=== PATIENT | female | born 2000 | race Caucasian/White ===

== ENCOUNTER 2024-09-24 22:58 | Observation (INO) | payer SELFPAY ==
--- NOTE | ~2024-09-24 | US_ITS ---
EXAMINATION: US OB <= 14 weeks fetus DATE: 09/24/2024 23:21 STANDARD MACHINE STITCHER INDICATION: Abdominal pain, and bleeding COMPARISON: 06/04/2024 TECHNIQUE: Real-time transabdominal obstetric ultrasound. FINDINGS: 1 Estimated date of delivery by last menstrual period is 04/13/2025 The uterus measures 11.1 x 4.9 x 5.5 cm. The endometrium is complex and echogenic with active vascular flow. No gestational sac is able to be visualized. The cervix appears dilated with echogenic tissue, likely acute blood products. The right ovary measures 3.2 x 2.3 x 3.8 cm. The left ovary measures 3.1 x 2.9 x 2.4 cm. IMPRESSION: Complex echogenic endometrium active vascular flow extending into the cervix, likely representing acu te blood products. These findings discussed with HALIMA Reis at 11:26 PM on 09/24/2024 Reviewed, dictated and finalized at location A. DARD MACHINE STITCHER IMPRESSION: Complex echogenic endometrium active vascular flow extending into the cervix, l ikely representing acute blood products. These findings discussed with HALIMA Reis at 11:26 PM on 09/24/2024
[2024-09-24 22:54] VITALS: BP 87/49; PULSE 83; RESP 18; TEMP 36.4; O2SAT 99
[2024-09-24 23:06] VITALS: BP 87/49; PULSE 83; RESP 17; O2SAT 100
--- NOTE | 2024-09-24 23:12 | ED.ABDPAIN ---
HPI - Abdominal Pain General Chief Complaint: Abdominal Pain Stated Complaint: abd pain Time Seen by Provider: 09/24/24 23:01 History of Present Illness HPI narrative: Patient is a 24-year-old female who presents emergency department this evening from [facility] with complaint of heavy vaginal bleeding and abdominal cramping which started this evening. Patient states that this is her 1st , and sees Dr. Espino. Admits that she has already had an ultrasound confirming an intrauterine . Patient states that around 1:00 p.m. she started to have some minor bleeding and some heavy cramping and throughout the day the bleeding increased. Upon arrival to our emergency department, patient is noted to be hypotensive with a blood pressure of 87/49, diaphoretic, pale and has completely soaked through the EMS stretcher. EMS has administered a L of IV fluid bolus with normal saline. Related Data Allergies Allergy/AdvReac Type Severity Reaction Status Date / Time amoxicillin (From Augmentin) Allergy Unknown Unknown Verified 09/24/24 23:48 cefdinir (From Omnicef) Allergy Unknown Unknown Verified 09/24/24 23:48 clavulanic acid (From Allergy Unknown Unknown Verified 09/24/24 23:48 Augmentin) Review of Systems Review of Systems: All systems are reviewed and are negative unless stated otherwise in the HPI. [facility] Past Medical History Medical History Overweight (BMI 25.0-29.9) Incomplete miscarriage with blood clot Exam Narrative: General: Alert, awake, afebrile, pale and diaphoretic. HEENT: PERRL, no rhinorrhea, no post nasal drip, oropharynx clear. Neck: Trachea midline, no JVD, no lymphadenopathy. Cardiovascular: Regular rate and rhythm, no murmurs, rubs or gallops, no peripheral edema. Respiratory: Clear to auscultation bilaterally, no tachypnea, no wheezing, no rhonchi, no rubs, no respiratory distress. Abdomen: Soft, nontender, nondistended, no rebound, no guarding, no peritoneal signs. Pelvic: Exam performed with the presence of female nurse aesthetics instructor revealed perfuse vaginal bleeding. Musculoskeletal: No joint swelling or deformity, normal muscle tone. Skin: No rashes or petechia, no signs of infection. Psychiatric: Alert and oriented, normal behavior and judgment for situation. Neurological: Alert and oriented to person, place, and time. Follows all commands. No focal deficits, speech is clear and fluent. Const: General: ill appearing Course Vital Signs Vital signs: Vital Signs Temperature 97.5 F L 09/24/24 22:54 Pulse Rate 83 09/24/24 22:54 Respiratory Rate 18 09/24/24 22:54 Blood Pressure 87/49 L 09/24/24 22:54 Pulse Oximetry 99 09/24/24 22:54 Oxygen Delivery Room Air 09/24/24 22:54 Temperature 97.5 F L 09/24/24 22:54 Pulse Rate 83 09/24/24 23:06 Respiratory Rate 17 09/24/24 23:06 Blood Pressure 87/49 L 09/24/24 23:06 Pulse Oximetry 100 09/24/24 23:06 Oxygen Delivery Room Air 09/24/24 22:54 MDM - Abdominal Pain MDM Narrative Medical decision making narrative: The patient was evaluated by myself in the emergency department. History is obtained from patient who is an independent historian and physical exam was performed. External medical records were reviewed at this time. IV was established and pertinent tests were ordered. Patient was continued on the 1 L IV fluid bolus initiated by EMS, emergent release of 1 unit of packed RBCs O negative blood was initiated at this time. The on-call OB physician for Dr. Espino, Dr. Van was contacted at [phone] for emergency N/C. Laboratory results obtained revealing a leukocytosis of 16.8, hemoglobin of 9.8 no previous available for comparison. Type and screen, Rh, PT/INR/PTT currently pending. Imaging studies obtained included pelvic ultrasound OB less than 14 weeks, received a call from radiologist shortly after at [phone] informing us that ultrasound revealed active uterine hemorrhage. Differential diagnosis considerations include miscarriage, hemorrhagic shock. Comorbidities impacting this visit include none. I have evaluated and discussed social determinants of health with the patient that could potentially impact subsequent diagnosis and treatment plans. Patient was taken to OR emergently for a D&C. Critical care time of 37 minutes, exclusive of separately performed procedures, necessary for treating or preventing eminent or life-threatening deterioration of patient's condition of hemorrhagic shock, focused on patient care provided personally by me and time spent during initial evaluation, physical examination, ordering and performing treatments and interventions, ordering and reviewing laboratory studies, ordering and reviewing radiographic studies, re-evaluation of the patient's condition, evaluation of the patient's response to treatment, and discussion of patient case with multiple consultants. Lab Data 09/24/24 23:39 09/24/24 23:39 Labs: Lab Results 09/24/24 Range/Units 23:39 WBC 16.8 H (4.5-10.0) K/mm3 RBC 3.33 L (4.2-5.4) M/mm3 Hgb 9.8 L (12.0-15.0) g/dL Hct 29.4 L (37.0-47.0) % MCV 88.3 (80-100) fl MCH 29.4 (26-34) pg MCHC 33.3 (32-36) g/dl RDW 13.1 (11.5-14.5) % Plt Count 309 (150-375) k/mm3 MPV 10.8 H (7.4-10.4) fl Immature Gran % (Auto) 0.4 (0-0.5) % Neut % (Auto) 85.5 H (45.5-73.1) % Lymph % (Auto) 8.6 L (18.3-44.2) % Craven % (Auto) 4.5 (2.6-8.5) % Eos % (Auto) 0.7 (0-4.4) % Baso % (Auto) 0.3 (0.2-1.2) % Lymph # (Auto) 1.45 (0.9-3.2) K/mm3 Craven # (Auto) 0.8 H (0.1-0.6) K/mm3 Eos # (Auto) 0.1 (0-0.3) K/mm3 Baso # (Auto) 0.1 (0.0-0.1) K/mm3 Abs Immat Gran (auto) 0.07 H (0.00-0.031) K/mm3 Absolute Neuts (auto) 14.4 H (1.3-6.7) K/mm3 Absolute Nucleated RBC 0.000 (0.0-0.012) K/mm3 Nucleated RBC % 0.0 (0.0-0.2) % PT Pending INR Pending APTT Pending Sodium 136 L (137-145) mmol/L Potassium 3.7 (3.4-5.0) mmol/L Chloride 108 H (98-107) mmol/L Carbon Dioxide 21 L (22-30) mmol/L Anion Gap 7 (4-12) mmol/L BUN 8 (7-17) mg/dL Creatinine 0.44 L (0.7-1.0) mg/dL Estim Creat Clear Calc Not Reportable Estimated GFR > 60 (59 - ) Glucose 110 (65-110) mg/dL Calcium 8.0 L (8.4-10.2) mg/dL Total Bilirubin 0.5 (0.2-1.3) mg/dL AST 15 (14-36) U/L ALT 12 (6-35) U/L Alkaline Phosphatase 48 (38-126) U/L Total Protein 6.0 L (6.3-8.2) g/dL Albumin 3.4 L (3.5-5.1) g/dL Beta HCG, Quant Pending Blood Type Pending Antibody Screen Pending Screen Pending Baby's Blood Type Pending Baby's EDGAR Pending Doses of RhIg Required Pending Crossmatch See Detail Imaging Data Radiologist's impression: ITS Impressions Ultrasound 09/24/24 23:21 IMPRESSION: Complex echogenic endometrium active vascular flow extending into the cervix, likely representing acute blood products. These findings discussed with HALIMA Reis at 11:26 PM on 09/24/2024 Critical Care Time Critical Care Time Total Critical Care Time: 37 (Please refer to [facility] for attestation.) Discharge Plan Discharge Clinical Impression: Hemorrhagic shock, Incomplete miscarriage with blood clot Patient Disposition: Still a Patient Condition: Stable Instructions: Antibiotic Form Patient Language: Albanian Time of Disposition: 23:56
[2024-09-24 23:44] LABS: Basophils Absolute Auto 0.1 K/mm3 (0.0-0.1); Basophils Percent Auto 0.3 % (0.2-1.2); Eosinophils Absolute Auto 0.1 K/mm3 (0-0.3); Eosinophils Percent Auto 0.7 % (0-4.4); Hematocrit 29.4 % (37.0-47.0); Hemoglobin 9.8 g/dL (12.0-15.0); Immature Granulocyte Absolute 0.07 K/mm3 (0.00-0.031); Immature Granulocyte Percent A 0.4 % (0-0.5); Lymphocytes Absolute Auto 1.45 K/mm3 (0.9-3.2); Lymphocytes Percent Auto 8.6 % (18.3-44.2); Mean Corpuscular HGB Conc 33.3 g/dl (32-36); Mean Corpuscular Hemoglobin 29.4 pg (26-34); Mean Corpuscular Volume 88.3 fl (80-100); Mean Platelet Volume 10.8 fl (7.4-10.4); Monocytes Absolute Auto 0.8 K/mm3 (0.1-0.6); Monocytes Percent Auto 4.5 % (2.6-8.5); Neutrophils Absolute Auto 14.4 K/mm3 (1.3-6.7); Neutrophils Percent Auto 85.5 % (45.5-73.1); Platelet Count Result 309 k/mm3 (150-375); Red Blood Count 3.33 M/mm3 (4.2-5.4); Red Cell Distribution Width 13.1 % (11.5-14.5); White Blood Count 16.8 K/mm3 (4.5-10.0)
--- NOTE | 2024-09-24 23:50 | PM.IMHP ---
H&P: HPI History of Present Illness Date/Time: 09/24/24 23:50 Chief Complaint: Vaginal bleeding Narrative: This patient is a 24-year-old 1 approximately 10 weeks gestation who has heavy vaginal bleeding. She started cramping and bleeding very heavy earlier tonight. She lost considerable blood, passed large clots, came to the emergency department. She had ultrasound in the emergency department which was indicative of an incomplete miscarriage. She has active bleeding in the emergency department. She stayed cardiac, diaphoretic, pale, hypotensive. Explained the medical situation to the patient. We agreed to proceed with urgent suction D&C. Indicated emergency department doctor that blood should be ordered and transfused. The patient understands the details of the procedure. The procedure has been explained in detail. She understands the risks. She understands that injuries may occur that result in hospitalization, more surgery, and severe illness. She understands risk of hemorrhage and infection. She denies any chest pain or shortness of breath. She denies any nausea, vomiting, fever, chills. Review of Systems Review of Systems: All systems reviewed & are unremarkable except as noted in HPI and below Constitutional: Constitutional: Denies chills, Denies fatigue, Denies fever(s) and Denies weakness Eyes: Eyes: Denies blurry vision, Denies change in vision, Denies loss of peripheral vision, Denies loss of vision, Denies other visual disturbances and Denies eye pain ENT: Denies vertigo, Denies dizziness, Denies hearing loss, Denies mouth pain, Denies nasal obstruction, Denies neck mass and Denies neck pain Cardiovascular: Cardiovascular: Denies chest pain, Denies diaphoresis, Denies syncope, Denies leg edema and Denies dyspnea Respiratory: Respiratory: Denies chest congestion, Denies cough, Denies hemoptysis, Denies dyspnea and Denies wheezing Gastrointestinal: Gastrointestinal: Denies abdominal pain, Denies constipation, Denies diarrhea, Denies nausea and Denies vomiting Genitourinary: Genitourinary: Denies hematuria, Denies change in libido, Denies nocturia, Denies genital lesions, Denies flank pain and Denies urinary urgency Musculoskeletal: Musculoskeletal: Denies abnormal gait, Denies back pain, Denies myalgias, Denies arthralgias, Denies joint swelling, Denies muscle weakness and Denies neck pain Integumentary/Breasts: Skin/Breast: Denies swelling, Denies breast pain, Denies breast mass, Denies dry skin, Denies nipple discharge, Denies unusual bruising and Denies jaundice Neurologic: Denies Neuro-related abnormal movements, Denies Abnormal speech present, Denies abnormal gait, Denies behavioral changes, Denies confusion, Denies vertigo, Denies dizziness, Denies syncope, Denies loss of vision, Denies memory loss, Denies convulsions and Denies weakness Psychiatric: Psychiatric: Denies abnormal sleep pattern, Denies behavioral changes, Denies change in libido, Denies confusion, Denies depression, Denies anhedonia and Denies memory loss Endocrine: Endocrine: Reports no additional endocrine complaints, Denies change in libido and Denies fatigue Hematologic/Lymphatic: Hematologic/Lymphatic: Reports no additional hematologic/lymphatic complaints Allergic/Immunologic: Allergic/Immunologic: Reports no additional allergic/immunologic complaints and Denies wheezing Meds Home Medications and Allergies Allergies Allergy/AdvReac Type Severity Reaction Status Date / Time amoxicillin (From Augmentin) Allergy Unknown Unknown Verified 09/24/24 23:48 cefdinir (From Omnicef) Allergy Unknown Unknown Verified 09/24/24 23:48 clavulanic acid (From Allergy Unknown Unknown Verified 09/24/24 23:48 Augmentin) Vital Signs Vital Signs - 24 hr 09/24/24 22:54 09/24/24 23:06 Temperature 97.5 F L Pulse Rate 83 83 Respiratory Rate 18 17 Blood Pressure 87/49 L 87/49 L Pulse Oximetry 99 100 Oxygen Delivery Room Air Exam Const: General: cooperative, healthy appearing, comfortable and no acute distress Orientation/consciousness: oriented to person, oriented to place and oriented to time HENMT: Head: normal to inspection Ears: external ears normal Face/Nose/Sinus: Normal external nose present and normal facial exam Face and sinus: normal facial exam Eyes: General: appearance normal, both eyes and all related structures Neck: Neck: normal visual inspection, trachea midline and supple Resp: Auscultation: clear to auscultation bilaterally, no crackles, no rales, no rhonchi and no wheezes Cardio: Rate: regular rate Rhythm: regular rhythm Heart sounds: no click, no murmurs and no rubs GI: GI Palp: No abdominal tenderness, No Soft to palpation, No Tenderness to palpation present (GI) and No Palpable mass present Auscultation: normal bowel sounds Skin: General skin exam: normal color and no rashes or lesions noted Neuro: General: oriented to person, oriented to place and oriented to time Extrem: General: normal to inspection, no joint enlargement, no clubbing, cyanosis or edema, no pedal edema and no calf tenderness Psych: Appearance: grossly normal Mental Status: mental status grossly normal Speech and movement: Normal speech and movement present H&P: Results Labs Labs: Short CBC 09/24/24 Range/Units 23:39 WBC 16.8 H (4.5-10.0) K/mm3 Hgb 9.8 L (12.0-15.0) g/dL Hct 29.4 L (37.0-47.0) % Plt Count 309 (150-375) k/mm3 Assessment and Plan Assessment and plan (1) Hemorrhage: Code(s): R58 - Hemorrhage, not elsewhere classified Status: Acute Assessment and Plan: This is a primiparous female at approximately 9 weeks gestation with incomplete miscarriage and hemorrhage. We agreed to move forward with suction D&C urgently. She understands risks, benefits, alternatives. She has completed the informed consent process and is ready to proceed. (2) Incomplete miscarriage with blood clot: Code(s): O03.2 - Embolism following incomplete spontaneous Status: Acute
[2024-09-24] MEDS: Please add drug allergy info to patient profile. 1 EACH XX (23:52)
[2024-09-24 23:54] LABS: Alanine Aminotransferase 12 U/L (6-35); Albumin Level 3.4 g/dL (3.5-5.1); Alkaline Phosphatase 48 U/L (38-126); Anion Gap 7 mmol/L (4-12); Aspartate Amino Transferase 15 U/L (14-36); Bilirubin,Total 0.5 mg/dL (0.2-1.3); Blood Urea Nitrogen 8 mg/dL (7-17); Carbon Dioxide 21 mmol/L (22-30); Chloride 108 mmol/L (98-107); Estimated Glomerular Filt Rate > 60; Glucose 110 mg/dL (65-110); Potassium 3.7 mmol/L (3.4-5.0); Sodium 136 mmol/L (137-145)
--- NOTE | 2024-09-24 23:57 | WPDANESEPP ---
Anes - Eval Pre Procedure Procedure: Operation Date: 09/25/24 01:00 Proposed Procedures p D&C Suction and Sharp - Franklin Nael Van MD Date/Time: 09/24/24 23:57 Surgeon: Rehan Preop Diagnosis: Missed AB Pre Op Diagnosis: abd pain Patient Data Age: 24 Gender: F Height: 22.59 m Weight: Last Vital Signs Temp 97.5 F L 09/24/24 22:54 Pulse 83 09/24/24 23:06 Resp 17 09/24/24 23:06 BP 87/49 L 09/24/24 23:06 Pulse Ox 100 09/24/24 23:06 O2 Del Method Room Air 09/24/24 22:54 Allergies Allergy/AdvReac Type Severity Reaction Status Date / Time amoxicillin (From Augmentin) Allergy Unknown Unknown Verified 09/24/24 23:48 cefdinir (From Omnicef) Allergy Unknown Unknown Verified 09/24/24 23:48 clavulanic acid (From Allergy Unknown Unknown Verified 09/24/24 23:48 Augmentin) Laboratory Tests 09/24/24 23:39 WBC 16.8 H K/mm3 (4.5-10.0) RBC 3.33 L M/mm3 (4.2-5.4) Hgb 9.8 L g/dL (12.0-15.0) Hct 29.4 L % (37.0-47.0) MCV 88.3 fl (80-100) MCH 29.4 pg (26-34) MCHC 33.3 g/dl (32-36) RDW 13.1 % (11.5-14.5) Plt Count 309 k/mm3 (150-375) MPV 10.8 H fl (7.4-10.4) Immature Gran % (Auto) 0.4 % (0-0.5) Neut % (Auto) 85.5 H % (45.5-73.1) Lymph % (Auto) 8.6 L % (18.3-44.2) Richardson % (Auto) 4.5 % (2.6-8.5) Eos % (Auto) 0.7 % (0-4.4) Baso % (Auto) 0.3 % (0.2-1.2) Lymph # (Auto) 1.45 K/mm3 (0.9-3.2) Richardson # (Auto) 0.8 H K/mm3 (0.1-0.6) Eos # (Auto) 0.1 K/mm3 (0-0.3) Baso # (Auto) 0.1 K/mm3 (0.0-0.1) Abs Immat Gran (auto) 0.07 H K/mm3 (0.00-0.031) Absolute Neuts (auto) 14.4 H K/mm3 (1.3-6.7) Absolute Nucleated RBC 0.000 K/mm3 (0.0-0.012) Nucleated RBC % 0.0 % (0.0-0.2) PT Pending INR Pending APTT Pending Sodium 136 L mmol/L (137-145) Potassium 3.7 mmol/L (3.4-5.0) Chloride 108 H mmol/L (98-107) Carbon Dioxide 21 L mmol/L (22-30) Anion Gap 7 mmol/L (4-12) BUN 8 mg/dL (7-17) Creatinine 0.44 L mg/dL (0.7-1.0) Estim Creat Clear Calc Not Reportable Estimated GFR > 60 (59 - ) Glucose 110 mg/dL (65-110) Calcium 8.0 L mg/dL (8.4-10.2) Total Bilirubin 0.5 mg/dL (0.2-1.3) AST 15 U/L (14-36) ALT 12 U/L (6-35) Alkaline Phosphatase 48 U/L (38-126) Total Protein 6.0 L g/dL (6.3-8.2) Albumin 3.4 L g/dL (3.5-5.1) Beta HCG, Quant Pending Patient hx anesthesia problems: none Family hx anesthesia problems: none Results Review: All pre-operative results and documents have been reviewed as part of the pre-operative evaluation. [facility] Past Medical History Medical History Overweight (BMI 25.0-29.9) Incomplete miscarriage with blood clot Exam Day of Procedure 09/24/24 23:57 Patient weight: overweight Neurological: alert and oriented
--- NOTE | 2024-09-24 23:58 | WPDHPUPDATE1 ---
History and Physical Update Update Date/Time: 09/24/24 23:58 History and Physical has been reviewed, including an updated exam of the patient. There are NO changes in the patient's condition. Risks, benefits, and alternatives have been discussed and questions answered. Patient agrees to proceed with procedure.
[2024-09-25] VITALS (10 sets, daily range): BP systolic 96–119; BP diastolic 44–64; PULSE 71–131; RESP 12–18; TEMP 36.3–37; O2SAT 98–100; BMI 25.2
[2024-09-25] MEDS: LACTATED RINGERS 1,000 ML 30 ML IV CONT
--- NOTE | 2024-09-25 00:10 | PC.NURSE ---
Patient taken to OR @ 0000. Report given to ARELI Simmons. No questions at this time. Blood for transfusion not ready at the time of departure. Per ED Charge, Amanda pt to go to surgery without blood.
[2024-09-25 00:11] LABS: INR 1.2; Prothrombin Time 15.9 Seconds (11.1-14.7)
[2024-09-25 00:12] LABS: Partial Thromboplastin Time 30.2 Seconds (22.3-36.8)
--- NOTE | 2024-09-25 00:20 | P.PNAN_ITS ---
Anes - Eval Final PreProcedure Day of Procedure 09/25/24 00:20 Patient weight: normal Heart: regular rate and rhythm Lungs: clear to auscultation Airway: Mallampati scale class III and special considerations poor opening Neurological: alert and oriented Last oral intake: >/= 8 hours ASA classification: II Emergent: yes Anesthetic plan: proceed Anesthesia type and monitoring: general ETT and standard monitoring Results Review: All pre-operative results and documents have been reviewed as part of the pre- operative evaluation. Informed Consent: The patient's anesthetic plan and its attendant risks and benefits were discussed with the patient/family/POA. Questions were solicited and answers provided to the satisfaction of the patient/family/POA.
--- NOTE | 2024-09-25 00:54 | P.OP_ITS ---
Procedure Note - Detailed Date of Procedure 09/25/24 Pre-op Diagnosis Incomplete miscarriage, hemorrhage Post-op Diagnosis Same Procedure Performed Suction D&C Surgeon Franklin Van MD Anesthesia MAC Indications missed Findings normal-appearing vulva, vagina, with cervix dilated to about 2 cm, clot in the vagina and within the cervix. Moderate amount of products conception within the uterus. 10 cm uterus Description of Procedure the patient was taken the operating room. She was prepped and draped in dorsal lithotomy position after induction of mac anesthesia. A speculum was placed in the vagina. Cervix grasped with tenaculum. The cervix was dilated to about 1 cm, no manual dilation was required. A 8. Turkish curved curette was used to perform suction D&C. The curette was introduced and vacuum was applied. The curette was removed over all surfaces of the intrauterine cavity multiple times. This was done until all the surfaces were clear and had the familiar grainy texture they can be felt through the instrument. A sharp curette was then used to curettage all the surfaces. The suction cup was then reapplied 1 more time to remove any debris. The instruments were removed. The speculum and tenaculum were removed. The patient tolerated the procedure well. She was taken recovery room stable condition. Estimated Blood Loss 150 Drains No Packing No Pathology Yes Complications No immediate complications Condition Stable Disposition PACU
[2024-09-25] MEDS: fentaNYL CITRATE INJ (*CRX) 100 MCG/2 ML VIAL 25 MCG IV PUSH ×2 (01:30→01:36)
--- NOTE | 2024-09-25 02:13 | ADMGEN ---
This patient, Princess Conte, was admitted to Medical Room 257-. Patient/family oriented to hospital policies and general routines including ID bracelet, bed and alarms, visiting hours, pain management, procedures, bathroom and other care routines, personal items, smoking policy, room service/diet, and visiting hours. Information on how to activate the Rapid Response Team has been discussed. Patient/Family are encouraged to report perceived risks to care and to ask questions if they do not understand what they are told or what they should do.
[2024-09-25 02:54] LABS: Hematocrit 26.1 % (37.0-47.0); Hemoglobin 8.8 g/dL (12.0-15.0); Mean Corpuscular HGB Conc 33.7 g/dl (32-36); Mean Corpuscular Hemoglobin 29.4 pg (26-34); Mean Corpuscular Volume 87.3 fl (80-100); Mean Platelet Volume 11.2 fl (7.4-10.4); Platelet Count Result 287 k/mm3 (150-375); Red Blood Count 2.99 M/mm3 (4.2-5.4); Red Cell Distribution Width 13.2 % (11.5-14.5); White Blood Count 16.9 K/mm3 (4.5-10.0)
[2024-09-25] MEDS: KETOROLAC 30 MG/ML VIAL (*BKC) IV PUSH ×2 (05:19→12:17)
[2024-09-25] MEDS: SIMETHICONE 80 MG TAB.CHEW PO ×2 (08:49→12:17)
[2024-09-25] MEDS: DOCUSATE SODIUM 100 MG CAPSULE PO (08:49)
[2024-09-25 09:38] LABS: Hemoglobin 8.4 g/dL (12.0-15.0); Mean Corpuscular HGB Conc 32.3 g/dl (32-36); Mean Corpuscular Hemoglobin 28.6 pg (26-34); Mean Corpuscular Volume 88.4 fl (80-100); Mean Platelet Volume 10.3 fl (7.4-10.4); Platelet Count Result 292 k/mm3 (150-375); Red Blood Count 2.94 M/mm3 (4.2-5.4); Red Cell Distribution Width 13.3 % (11.5-14.5); White Blood Count 11.2 K/mm3 (4.5-10.0)
[2024-09-25] MEDS: ACETAMINOPHEN 500 MG TABLET 1000 MG PO (12:17)
--- NOTE | 2024-09-25 14:56 | PM.GYNPNOP ---
FOREST PATROLMAN - A/P Postoperative Procedures: Procedures Operation Date: 09/25/24 01:00 Actual Procedure Side Surgeon p Suction Dilation and Curettage Not Applicable Franklin Van MD Postoperative day: 1 Postoperative status: doing well Postoperative plan: see orders Time Spent With Patient Time: Total time spent is greater than 50% in coordination of care (as documented) at patient's floor/unit and/or counseling patient: Time with patient: less than 15 minutes FOREST PATROLMAN- PN:Subj Post-Op Subjective Date/time seen: 09/25/24 14:56 Subjective: patient reports feeling better, patient has no complaints and pain is well controlled Exam Const: General: healthy appearing, comfortable and no acute distress Resp: Auscultation: clear to auscultation bilaterally, no rales, no rhonchi and no wheezes Cardio: Rate: regular rate Heart sounds: no click, no murmurs and no rubs GI: Inspection: non-distended Auscultation: normal bowel sounds Extrem: General: normal to inspection, no pedal edema and no calf tenderness FOREST PATROLMAN - PN: Obj Data Vital Signs Vital Signs: Vital Signs - 24 hr 09/24/24 22:54 09/24/24 23:06 09/25/24 00:56 Temperature 97.5 F L 97.3 F L Pulse Rate 83 83 131 H Respiratory Rate 18 17 16 Blood Pressure 87/49 L 87/49 L 96/64 L Pulse Oximetry 99 100 100 Oxygen Delivery Room Air Simple Face Mask Oxygen Flow Rate 8 09/25/24 01:14 09/25/24 01:30 09/25/24 01:47 Temperature Pulse Rate 80 76 79 Respiratory Rate 14 14 12 Blood Pressure 103/58 L 104/62 106/58 L Pulse Oximetry 100 98 98 Oxygen Delivery Simple Face Mask Room Air Room Air Oxygen Flow Rate 8 09/25/24 02:06 09/25/24 02:19 09/25/24 02:35 Temperature 98.2 F 98.5 F Pulse Rate 90 84 Respiratory Rate 17 17 Blood Pressure 119/56 L 102/54 L Pulse Oximetry 100 99 Oxygen Delivery Room Air Oxygen Flow Rate 09/25/24 03:31 09/25/24 05:17 09/25/24 07:38 Temperature 98.1 F 98.6 F 98.4 F Pulse Rate 75 83 71 Respiratory Rate 17 18 14 Blood Pressure 111/54 L 106/47 L 116/44 L Pulse Oximetry 100 100 100 Oxygen Delivery Oxygen Flow Rate 09/25/24 08:45 09/25/24 11:38 Temperature 97.7 F Pulse Rate 75 Respiratory Rate 14 Blood Pressure 107/44 L Pulse Oximetry 100 Oxygen Delivery Room Air Oxygen Flow Rate Intake/Output Intake/Output: Intake & Output 09/22/24 09/23/24 09/24/24 09/25/24 23:59 23:59 23:59 23:59 Intake Total 1170 Output Total 900 Balance 270 Meds/Results Medications: Active Medications Generic Name Dose Route Start Last Admin Trade Name Freq PRN Reason Stop Dose Admin Acetaminophen 1,000 mg 09/25/24 06:00 09/25/24 12:17 Acetaminophen 500 Mg Tablet PO 1,000 mg Q6HR SALMA Administration Docusate Sodium 100 mg 09/25/24 09:00 09/25/24 08:49 Docusate Sodium 100 Mg Capsule PO 100 mg BID SALMA Administration Ibuprofen 600 mg 09/26/24 00:00 Ibuprofen 600 Mg Tablet PO Q6HR [facility] Ketorolac Tromethamine 30 mg 09/25/24 06:00 09/25/24 12:17 Ketorolac 30 Mg/Ml Vial (*Bkc) IV PUSH 09/25/24 18:01 30 mg Q6HR SALMA Administration Naloxone HCl 0.1 mg 09/25/24 01:53 Naloxone Hcl 0.4 Mg/Ml Vial IV PUSH Q2M PRN Respiratory rate less than 10 Ondansetron HCl 4 mg 09/25/24 01:53 Ondansetron Inj 4 Mg/2 Ml Vial IV PUSH Q6H PRN Nausea And Vomiting Oxycodone HCl 5 mg 09/25/24 01:53 Oxycodone Hcl (*Crx) 5 Mg Tab Ir PO Q4H PRN Pain Rated 4-6 Oxycodone HCl 10 mg 09/25/24 01:53 Oxycodone Hcl (*Crx) 5 Mg Tab Ir PO Q6H PRN Pain Rated 7-10 Simethicone 80 mg 09/25/24 08:00 09/25/24 12:17 Simethicone 80 Mg Tab.Chew PO 80 mg TIDWM SALMA Administration Radiology Results: ITS Impressions Ultrasound 09/24/24 23:21 IMPRESSION: Complex echogenic endometrium active vascular flow extending into the cervix, likely representing acute blood products. These findings discussed with HALIMA Reis at 11:26 PM on 09/24/2024 Labs 09/25/24 09:31 09/24/24 23:39 Labs: Laboratory Results - last 24 hr 09/24/24 09/25/24 09/25/24 23:39 02:07 09:31 WBC 16.8 H 16.9 H 11.2 H RBC 3.33 L 2.99 L 2.94 L Hgb 9.8 L 8.8 L 8.4 L Hct 29.4 L 26.1 L 26.0 L MCV 88.3 87.3 88.4 MCH 29.4 29.4 28.6 MCHC 33.3 33.7 32.3 RDW 13.1 13.2 13.3 Plt Count 309 287 292 MPV 10.8 H 11.2 H 10.3 Immature Gran % (Auto) 0.4 Neut % (Auto) 85.5 H Lymph % (Auto) 8.6 L [place] % (Auto) 4.5 Eos % (Auto) 0.7 Baso % (Auto) 0.3 Lymph # (Auto) 1.45 [place] # (Auto) 0.8 H Eos # (Auto) 0.1 Baso # (Auto) 0.1 Abs Immat Gran (auto) 0.07 H Absolute Neuts (auto) 14.4 H Absolute Nucleated RBC 0.000 Nucleated RBC % 0.0 PT 15.9 H INR 1.2 APTT 30.2 Sodium 136 L Potassium 3.7 Chloride 108 H Carbon Dioxide 21 L Anion Gap 7 BUN 8 Creatinine 0.44 L Estim Creat Clear Calc Not Reportable Estimated GFR > 60 Glucose 110 Calcium 8.0 L Total Bilirubin 0.5 AST 15 ALT 12 Alkaline Phosphatase 48 Total Protein 6.0 L Albumin 3.4 L Beta HCG, Quant 1906.90 Blood Type A Positive Antibody Screen Negative Screen TNP Baby's Blood Type Not Reportable Baby's EDGAR Not Reportable Doses of RhIg Required 0 Crossmatch See Detail
--- OUTSIDE RECORDS SUMMARY | 2024-09-26 03:40 | XMS_ITS | Data Portability ---
Author Organization [facility] [place] Address [address] [place] [address] [place] [address] Assessment No assessment recorded. Plan of Treatment Reminders Order Date Submit Date Provider Last Modified By Organization Details Last Modified Time Details Appointments None recorded. Lab None recorded. Referral None recorded. Procedures None recorded. Surgeries None recorded. Imaging US, obstetric, transvagina l 2024 025 [email or web address] [place], [address], [place], [address], 14:09:04 Medication Orders None recorded. Patient TargetsNo targets recorded. Patient InstructionsNo instructions recorded. Reason for Referral None Reported. Results Created Date Observation Date Name Description Value Unit Range Abnormal Flag Note LastModifiedBy Organization Detail LastModifiedTime 09/09/19 25 09/09/2024 US, obste tric, trans vagin al No observ ation record ed. [email or web address] [place] [address], [place], [address], 09/09/2024 14:45:18 09/09/19 25 09/09/2024 US, obste tric, trans vagin al No observ ation record ed. [email or web address] [address], [place], [address], 09/09/2024 22:20:20 Result Notes None recorded. Procedures Surgical History Date Name Laterality Status Provider Name and Address Organization Details Recorded Time 7 Tonsillectomy completed Lor Cast [facility] 09/09/2024 14:27:27 Imaging Results Imaging Date Name Status LastModified by Organization Details LastModified Time 09/09/2024 US, obstetric, transvaginal completed [email or web address] [place] [address], [place], [address], 09/09/2024 14:45:18 09/09/2024 US, obstetric, transvaginal completed La[address], [place], [address], 09/09/2024 22:20:20 Procedure Notes None recorded. Medical Equipment None Reported. Allergies Allergen ID Allergen Name Allergen Category Reaction Reaction Severity Criticality Documentation Date Start Date Code Code System Note Provider Name and Address Organization Details Recorded Time Augmentin medicatio n abdominal pain moderate Not available 09/09/2024 84070 2 RxNorm Lor Cast [facility] 13:57:37 95132 Omnicef medicatio n nausea moderate Not available 09/09/2024 25472 RxNorm Lor Cast [facility] 13:57:37 Medications Not known to be on any medication Vitals Date Recorded Body weight Body mass index (BMI) Body height Systolic blood pressure Diastolic blood pressure Provider Name and Address Organization Details Last Updated DateTime 09/09/2024 64258.63 g 25.5 kg/m2 165.1 cm 119 mm[Hg] 68 mm[Hg] Lor Cast [facility] 14:25:58 Social History Question Answer Notes LastModified by Organizat ion Details LastModified Time Do You Have An Advance Directive? No [email or web address] Information not available 09/09/2024 What Is Your Level Of Alcohol Consumption? Occasional [email or web address] Information not available 09/09/2024 How Many Years Have You Consumed Alcohol? 2 [email or web address] Information not available 09/09/2024 Are You Blind Or Do You Have Difficulty Seeing? No Information not available 09/09/2024 What Is Your Level Of Caffeine Consumption? Moderate [email or web address] Information not available 09/09/2024 In The 14 Days Before Symptom Onset, Have You Had Close Contact With A Laboratory-confir med COVID-19 While That Case Was Ill? No [email or web address] Information not available 09/09/2024 In The 14 Days Before Symptom Onset, Have You Had Close Contact With A Person Who Is Under Investigation For COVID-19 While That Person Was Ill? No Information not available 09/09/2024 Have You Been To An Area Known To Be High Risk For COVID-19? No [email or web address] Information not available 09/09/2024 Are You Deaf Or Do You Have Serious Difficulty Hearing? No [email or web address] Information not available 09/09/2024 What Is The Highest Grade Or Level Of School You Have Completed Or The Highest Degree You Have Received? 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 No [email or web address] Information not available 09/09/2024 Do You Use Protection During Sex? No [email or web address] Information not available 09/09/2024 Do You Use Your Seat Belt Or Car Seat Routinely? Yes [email or web address] Information not available 09/09/2024 Do You Have Smoke And Carbon Monoxide Detectors In Your Home? Yes [email or web address] Information not available 09/09/2024 How Much Tobacco Do You Smoke? No [email or web address] Information not available 09/09/2024 Do You Feel Stressed (tense, Restless, Nervous, Or Anxious, Or Unable To Sleep At Night)? [id number] [email or web address] Information not available 09/09/2024 Do You Use Any Illicit Or Recreational Drugs? No [email or web address] Information not available 09/09/2024 Do You Use Sunscreen Routinely? Yes Information not available 09/09/2024 Have You Used IV Drugs? No [email or web address] Information not available 09/09/2024 Sex: Unknown Functional Status Question Answer Note LastModified by Organization D etails LastModified Time Are you able to walk? YESWOREST [email or web address] Information not available 09/09/2024 What is your exercise level? Moderate Information not available 09/09/2024 Mental Status None recorded. Family History Relationship Description Onset Age of this Age Resolved Age Notes LastModified by Organization Details LastModified Time Unspecified Relation Family history unknown [email or web address] Not available 2024 13:57:37 Medical History Condition Response No Past Medical History Y Gynecological History Statement/Question Response Flow Moderate Date of LMP 07/07/2024 On BCP's at Conception? N N Was last menstrual period normal Y STIs/STDs N HPV Vaccine N Duration of Flow (days) 4 Are cycles usually normal Y Frequency of Cycle (Q days) 28 Sexually Active? Y Menses Monthly Y Age of first menstrual cycle 14 Date of Last Pap Smear Sexual Problems? N LMP Approximate N Obstetrics History GPAL:G 0 P 0 0 0 0 Past Encounters Encounter ID Performer Location Encounter Start Date Encounter Closed Date Diagnosis/Indication Diagnosis SNOMED-CT Code Diagnosis ICD10 Code Diagnosis Note [id number] Elayne Hay [facility] [address] [address] 09/09/2024 13:16:30 09/09/2024 13:58:19 Uterine size for dates discrepancy 925428351 O26.841 O36.80X0 Z3A.00 [id number] LION STALLWORTH MD [facility] [address] [address] 09/09/2024 13:18:05 09/10/2024 08:57:41 Missed miscarriage 89647594 O02.1 - US c/w missed miscarriag e today, no FP and abnormal YS; GS measuring 30.3mm- denies cramping or bleeding- discussed risks and benefits of expectant vs medical vs surgical management - discussed bleeding precaution s- patient unsure, will call clinic if she decides to pursue medical or surgical management - will follow up in 1 week Health Concerns Section Related Observation LastModified by Organization Detai ls LastModified Time None Recorded Concern Status LastModified by Organization Details LastModified Time None Recorded Advance Directives Directive N: Payers Encounter Date Sequence Insurance Name Policy Number Policy Minor Covered Member ID Minor Member ID Guarantor Name 09/09/2024 1 *SELF PAY* J Carlos Fischer 09/09/2024 1 *SELF PAY* Co snehamildred Aaliyah Notes Date Note Type Note Provider Name and Address Organization Details Recorded Time 09/09/2024 text/html Venancio presents to establish care and for early US in . LMP 11/4, 9w1d by LMP. US today demonstrates gestational sac measuring 30.3mm and enlarged yolk sac with no pole seen, consistent with missed miscarriage. Patient denies bleeding or heavy cramping. Ovaries both normal. LION STALLWORTH MD [address], [place], [address], [facility] 09/09/2024 17:54:30 OBGyn Episode No OBEpisode recorded.
--- NOTE | 2024-10-22 20:59 | PM.DS ---
DS: Admitting Diagnosis Discharge Date 09/25/24 Admitting Diagnosis incomplete miscarriage, hemorrhage DS: Discharge Diagnosis Discharge Diagnosis (1) Hemorrhagic shock: Code(s): R57.8 - Other shock Status: Acute (2) Incomplete miscarriage: Code(s): O03.4 - Incomplete spontaneous without complication Status: Acute DS: Summary Hospital Course Hospital Course: 24-year-old female admitted through the emergency room for incomplete miscarriage that was resulting in hemorrhage. A urgent suction D dilatation curettage was performed. She was observed for period of time. She was given blood. She was discharged the next day. Time Spent with Patient Time attestation: Total time spent providing and/or coordinating discharge services: DS: Data Data Completed and Pending Completed studies during hospitalization: Pending at discharge 09/25/24 00:40 Surgical [PTH] Routine Discharge Plan Discharge Consulting providers: Roddy Brown Jr.; Goran Vegas; Kamla Mauro Discharging Clinician: Franklin Van Patient Disposition: Home, Self-Care Activity: pelvic rest Diet: regular Discharge Instructions: PERINEAL CARE: * Until bleeding stops, use your pamela bottle after urinating * Change your pad frequently throughout the day * No tub baths until seen by your physician - You may shower BLEEDING: * Each individual will experience vaginal bleeding, but it will vary with each situation and individual woman. * Vaginal bleeding will go thru cycles-from bright red, to pinkish to a white, creamy discharge. This is considered normal. You may also experience a brownish discharge which is also normal. DIET AND NUTRITION: * Eat at least 3 regular, well-balanced meals per day: include all 4 food groups daily. * You may prefer 6 small meals. * Drink 6-8 glasses of water or non-caffeinated beverages per day. * Loss of appetite is common with loss. We encourage you to try to eat; this will help with both your physical and emotional health. ACTIVITY: * Rest as much as possible during the day. * Do not exercise or lift anything heavier than 10 pounds (such as laundry or other children.) * Avoid stairs or driving as much as possible, especially if you are taking pain medication. * Do not put anything into the vagina. No douching, tampons, or sexual activity until seen and released by your physician. * Listen to your body, and do not do what is uncomfortable or painful. EMOTIONAL HEALTH: * This is a very difficult and sad time for you and your family, friends, and other children. It may be helpful to refer to the booklets on loss that you received. * It is okay to be sad and to cry. Denial, anger, and guilt are also normal stages that you and your family may go thru during this time. Each person reaches these stages at their own pace. * Keep the lines of communication open between family and friends, and ask for help if needed. NOTIFY PHYSICIAN IF YOU HAVE ANY QUESTIONS OR IF ANY OF THE FOLLOWING SYMPTOMS OCCUR: * If your episiotomy or incision becomes red, swollen, or more painful than what you have experienced in the hospital. * If your vaginal bleeding becomes foul smelling. * If your vaginal bleeding becomes more heavy than a period or if your bleeding changes from pink to bright red. However, you may pass an occasional walnut-sized clot once or twice for the first week . * If you experience a sharp, shooting pain in you calves. * If you discover a hard, reddened area on your breast or if you experience flu-like symptoms. * If you develop a temperature of 100.4 or greater. * If you are unable to eat or sleep and take care of activities that sustain life. * If you feel any desire to harm yourself or others, contact your physician immediately or go to the nearest emergency room. FOLLOW-UP CARE: * [facility] offers a and Infant Loss Support group which meets the Sunday of every month from 7-9pm. * If consent was given, you will be contacted by a Share counselor to see how you are doing. * If you have questions regarding the grieving process or would like more resources or support, you can call a Share counselor at [phone] or via email at [email or web address] The Staff at [facility] wishes to extend our deepest sympathy during this very difficult time. Patient Instructions: Antibiotic Form Patient Language: Pashto Stand Alone Forms: General Discharge Information Follow-up/Referrals: Franklin Van MD [Physician] - Discharge Medications: No Action No Home Medications Date of admission: 09/25/24 01:53 Primary Care Provider: UNKNOWN,DOCTOR Admitting Provider: Franklin Van Attending physician on admission: Franklin Van Condition: Stable
== END 2024-09-25 15:47 | disposition home or self-care (01) ==
LOC: ANHED 23:59 → ANHSURGERY 09-25 01:16 → ANH2MED 09-25 06:53
PROVIDERS: Physician Assistant; Admitting Provider Obstetrics & Gynecology; Emergency Provider Emergency Medicine; Visit Provider Obstetrics & Gynecology
PROC: (CPT 59812; principal; 2024-09-25 01:00)
DX: O03.1 Delayed or excessive hemorrhage following incomplete spontaneous abortion (principal); O03.31 Shock following incomplete spontaneous abortion
CPT/HCPCS: 59812; 36415; 76801; 80053; 84702; 85025; 85027; 85461; 85610; 85730; 86850; 86900; 86901; 86920; 88305; 96361; 96374; 99285; A9270; G0378; J1885; J3010; J7120